=== PATIENT | male | born 1960 | race Caucasian/White ===

== ENCOUNTER 2023-03-28 20:08 | Inpatient (IN) | payer SELFPAY ==
[2023-03-28 22:04] LABS: #Monocytes 0.8 thou/uL (0.11-0.59); #Neutrophils 11.1 thou/uL (1.40-6.50); %Basophils 0.2 % (0.0-1.0); %Lymphocytes 6.5 % (21.0-51.0); %Monocytes 6.4 % (0.0-10.0); %Neutrophils 86.2 % (42.0-75.0); Hemoglobin 10.5 g/dL (14.0-18.0); Mean Corpuscular HGB CONC 32.9 g/dL (32.0-36.0); Mean Corpuscular Hemoglobin 23.7 pg (27.0-31.0); Mean Platelet Volume 10.8 fL (7.4-10.4); Platelet Count 292 10x3/uL (130-400); Red Blood Cell (RBC) Count 4.43 mill/uL (4.70-6.10); White Blood Cell (WBC) Count 12.9 10x3/uL (4.8-10.8)
[2023-03-28 22:15] LABS: INR-International Normal Ratio 1.2; PTT 27.1 sec (22.9-36.1); Prothrombin Time 15.3 sec (12.0-14.7)
[2023-03-28 22:28] LABS: ALT (SGPT) 18 U/L (8-55); AST (SGOT) 19 U/L (5-34); Albumin 3.9 g/dL (3.4-4.8); Alkaline Phosphatase 77 U/L (40-110); Anion Gap 14 mmol/L (10-20); BUN (Urea Nitrogen) 33 mg/dL (8.4-25.7); Bilirubin, Total 1.2 mg/dL (0.2-1.2); Calc. Creatinine Clearance 0 mL/min (70-130); Calcium 9.7 mg/dL (7.8-10.44); Carbon Dioxide 29 mmol/L (23-31); Chloride 99 mmol/L (98-107); Estimated GFR 55; Globulin 2.9 g/dL (2.4-3.5); Glucose 204 mg/dL (80-115); Potassium 4.6 mmol/L (3.5-5.1); Protein, Total 6.8 g/dL (5.8-8.1); Sodium 137 mmol/L (136-145)
[2023-03-28 22:32] LABS: CellaVision Operator ID LAB.CLH1; Elliptocytes SLIGHT = 2-5 cells HPF (0-1); Hypochromia SLIGHT = 6-15 cells HPF (0-5); Macrocytosis SLIGHT = 6-15 cells HPF (0-5); Platelet Adequacy Comment Platelets Normal; Polychromasia SLIGHT = 2-3 cells HPF (0-2); Target Cells SLIGHT = 2-5 cells HPF (0-1)
[2023-03-28] MEDS ORDERED: Morphine 2 MG/ML VIAL SLOW IVP PRN (22:54)
[2023-03-28] MEDS ORDERED: Ipratropium/Albuterol 3 ML NEB NEB PRN (22:54)
[2023-03-28] MEDS ORDERED: Ondansetron PF 4 MG/2 ML Vial IVP PRN (22:54)
[2023-03-28] MEDS ORDERED: Acetaminophen/Codeine 30-300mg Tablet PO PRN (22:57)
[2023-03-28 23:00] VITALS: BMI 21.4
[2023-03-28] MEDS ORDERED: Sodium Chloride 0.9% 1,000 ML IV SCH (23:00)
[2023-03-28 23:30] LABS: CKMB 1.9 ng/mL (0-6.6)
[2023-03-29] MEDS: Sodium Chloride 0.9% 1,000 ML IV SCH ×2 (00:01→08:04)
[2023-03-29] MEDS: Acetaminophen 325 MG TAB PO SCH ×4 (06:04→18:41)
[2023-03-29 06:09] LABS: #Monocytes 1.2 thou/uL (0.11-0.59); #Neutrophils 10.7 thou/uL (1.40-6.50); %Basophils 0.2 % (0.0-1.0); %Eosinophils 0.1 % (0.0-10.0); %Lymphocytes 11.4 % (21.0-51.0); %Monocytes 8.7 % (0.0-10.0); %Neutrophils 78.9 % (42.0-75.0); Hemoglobin 9.3 g/dL (14.0-18.0); Mean Corpuscular HGB CONC 32.6 g/dL (32.0-36.0); Mean Platelet Volume 11.1 fL (7.4-10.4); Platelet Count 263 10x3/uL (130-400); RBC Distribution Width 16.4 % (11.5-14.5); Red Blood Cell (RBC) Count 3.87 mill/uL (4.70-6.10); White Blood Cell (WBC) Count 13.6 10x3/uL (4.8-10.8)
[2023-03-29 06:11] LABS: Mean Corpuscular Volume 73.6 fl (78.0-98.0)
[2023-03-29 06:26] LABS: INR-International Normal Ratio 1.2; Prothrombin Time 15.9 sec (12.0-14.7)
[2023-03-29 06:31] LABS: Anion Gap 13 mmol/L (10-20); BUN (Urea Nitrogen) 35 mg/dL (8.4-25.7); Calc. Creatinine Clearance 52 mL/min (70-130); Calcium 8.7 mg/dL (7.8-10.44); Carbon Dioxide 25 mmol/L (23-31); Chloride 104 mmol/L (98-107); Estimated GFR 59; Glucose 142 mg/dL (80-115); Potassium 4.1 mmol/L (3.5-5.1); Sodium 138 mmol/L (136-145)
[2023-03-29 06:35] LABS: Troponin I 0.058 ng/mL (< 0.028)
[2023-03-29] MEDS: Famotidine/PF 20 mg/2ml Vial SLOW IVP SCH ×2 (08:04→21:41)
[2023-03-29] MEDS ORDERED: Lactated Ringer's 1,000 ML IV SCH (09:00)
[2023-03-29] MEDS ORDERED: CEFAZOLIN 2 GM VIAL ONE (09:29)
[2023-03-29] MEDS ORDERED: Sodium Chloride 0.9% 100 ML ONE (09:29)
[2023-03-29] MEDS ORDERED: Fentanyl 250 MCG/5 ML VIAL ONE (10:40)
[2023-03-29] MEDS ORDERED: Communication Order-Pharmacy FS SCH (10:45)
[2023-03-29] MEDS ORDERED: Rocuronium Bromide 10 MG/ML (10ML VIAL) ONE (10:50)
[2023-03-29] MEDS ORDERED: Ondansetron PF 4 MG/2 ML Vial ONE (10:50)
[2023-03-29] MEDS ORDERED: Dexamethasone 20 MG/5 ML VIAL ONE (10:50)
[2023-03-29] MEDS ORDERED: Lidocaine 1% PF 5 ML VIAL ONE (10:50)
[2023-03-29] MEDS ORDERED: PROPOFOL 200 MG/20 ML VIAL ONE (10:50)
[2023-03-29] MEDS ORDERED: SUGAMMADEX SODIUM 200 MG/2 ML VIAL ONE (12:03)
[2023-03-29] MEDS ORDERED: traMADol HCl 50 MG TAB PO PRN (15:58)
[2023-03-29 17:39] LABS: Troponin I 0.036 ng/mL (< 0.028)
[2023-03-29 17:50] LABS: Bacteria/HPF None Seen HPF (None Seen); Bilirubin Negative (Negative); Blood, Urine Negative (Negative); CAUTI Indications for Culture Alt mental st,lethar; Clarity Clear (Clear); Glucose, Urine (Dipstick) 70 mg/dL (Negative); Ketone, Urine Negative (Negative); Leukocyte Negative Leu/uL (Negative); Nitrite Negative (Negative); Protein, Urine (Dipstick) 10 mg/dL (Neg-Trace); RBC/HPF 0-3 HPF (0-3); Specific Gravity, Urine 1.021 (1.002-1.036); Squamous Epithelial None Seen HPF (0-3); Urine Culture Reflex No No; Urobilinogen Normal mg/dL (Less than 2); WBC/HPF 0-3 HPF (0-3); pH, Urine 5.5 (5.0-9.0)
[2023-03-29] MEDS: CEFAZOLIN 2 GM in Sodium Chloride 0.9% 100 ML IVPB SCH (18:42)
[2023-03-29] MEDS: Aspirin 81 mg Enteric Coated Tablet PO SCH (21:41)
[2023-03-30] MEDS: Acetaminophen 325 MG TAB PO SCH ×5 (00:04→23:41)
[2023-03-30] MEDS: CEFAZOLIN 2 GM in Sodium Chloride 0.9% 100 ML IVPB SCH (02:26)
[2023-03-30 07:17] LABS: #Monocytes 1.2 thou/uL (0.11-0.59); #Neutrophils 10.8 thou/uL (1.40-6.50); %Basophils 0.2 % (0.0-1.0); %Lymphocytes 8.4 % (21.0-51.0); %Neutrophils 81.7 % (42.0-75.0); Hemoglobin 8.6 g/dL (14.0-18.0); Mean Corpuscular HGB CONC 32.6 g/dL (32.0-36.0); Mean Corpuscular Hemoglobin 23.4 pg (27.0-31.0); Mean Corpuscular Volume 71.7 fl (78.0-98.0); Mean Platelet Volume 11.4 fL (7.4-10.4); Platelet Count 254 10x3/uL (130-400); RBC Distribution Width 16.4 % (11.5-14.5); Red Blood Cell (RBC) Count 3.68 mill/uL (4.70-6.10); White Blood Cell (WBC) Count 13.3 10x3/uL (4.8-10.8)
[2023-03-30 07:37] LABS: Anion Gap 11 mmol/L (10-20); BUN (Urea Nitrogen) 27 mg/dL (8.4-25.7); Calc. Creatinine Clearance 71 mL/min (70-130); Calcium 8.7 mg/dL (7.8-10.44); Carbon Dioxide 25 mmol/L (23-31); Chloride 107 mmol/L (98-107); Estimated GFR 86; Glucose 149 mg/dL (80-115); Magnesium 2.1 mg/dL (1.6-2.6); Phosphorus 3.5 mg/dL (2.3-4.7); Potassium 4.7 mmol/L (3.5-5.1); Sodium 138 mmol/L (136-145)
[2023-03-30 08:23] LABS: Anisocytosis SLIGHT = 6-15 cells HPF (0-5); CellaVision Operator ID LAB.NR; Hypochromia SLIGHT = 6-15 cells HPF (0-5); Platelet Adequacy Comment Platelets Normal
[2023-03-30] MEDS: Aspirin 81 mg Enteric Coated Tablet PO SCH ×2 (09:41→20:06)
[2023-03-30] MEDS: Famotidine/PF 20 mg/2ml Vial SLOW IVP SCH ×2 (09:41→20:06)
[2023-03-30] MEDS: Senokot S 8.6-50 MG TAB PO SCH (20:06)
[2023-03-31] MEDS: Acetaminophen 325 MG TAB PO SCH ×3 (05:01→18:55)
[2023-03-31] MEDS: Aspirin 81 mg Enteric Coated Tablet PO SCH ×2 (09:09→20:49)
[2023-03-31] MEDS: Senokot S 8.6-50 MG TAB PO SCH ×2 (09:10→20:49)
[2023-03-31] MEDS ORDERED: Amlodipine 5 MG TAB PO SCH (14:15)
[2023-03-31] MEDS ORDERED: Lisinopril 10 MG TAB PO SCH (14:15)
[2023-03-31] MEDS ORDERED: hydrALAZINE 20 MG/ML VIAL SLOW IVP PRN (16:35)
[2023-03-31] MEDS: Amlodipine 5 MG TAB PO SCH (20:48)
[2023-04-01] MEDS: Acetaminophen 325 MG TAB PO SCH ×4 (00:26→17:52)
[2023-04-01] MEDS: Aspirin 81 mg Enteric Coated Tablet PO SCH ×2 (09:42→20:10)
[2023-04-01] MEDS: Amlodipine 5 MG TAB PO SCH ×2 (09:42→20:10)
[2023-04-01] MEDS: Lisinopril 10 MG TAB PO SCH (09:43)
[2023-04-01] MEDS: Senokot S 8.6-50 MG TAB PO SCH ×2 (09:50→20:11)
[2023-04-02] MEDS: Acetaminophen 325 MG TAB PO SCH ×5 (00:06→23:20)
[2023-04-02 06:10] LABS: #Basophils 0.1 thou/uL (0.0-0.2); #Eosinphils 0.3 thou/uL (0.0-0.7); #Monocytes 0.9 thou/uL (0.11-0.59); #Neutrophils 7.9 thou/uL (1.40-6.50); %Basophils 0.4 % (0.0-1.0); %Eosinophils 2.2 % (0.0-10.0); %Lymphocytes 20.8 % (21.0-51.0); %Neutrophils 68.2 % (42.0-75.0); Hemoglobin 8.2 g/dL (14.0-18.0); Mean Corpuscular HGB CONC 32.3 g/dL (32.0-36.0); Mean Corpuscular Hemoglobin 23.7 pg (27.0-31.0); Mean Platelet Volume 10.2 fL (7.4-10.4); Platelet Count 348 10x3/uL (130-400); RBC Distribution Width 17.2 % (11.5-14.5); Red Blood Cell (RBC) Count 3.46 mill/uL (4.70-6.10); White Blood Cell (WBC) Count 11.6 10x3/uL (4.8-10.8)
[2023-04-02 06:11] LABS: Mean Corpuscular Volume 73.4 fl (78.0-98.0)
[2023-04-02] MEDS: Senokot S 8.6-50 MG TAB PO SCH ×2 (08:08→20:09)
[2023-04-02] MEDS: Aspirin 81 mg Enteric Coated Tablet PO SCH ×2 (08:08→20:09)
[2023-04-02] MEDS: Amlodipine 5 MG TAB PO SCH ×2 (08:08→20:09)
[2023-04-02] MEDS: Lisinopril 10 MG TAB PO SCH (08:09)
[2023-04-03] MEDS: Acetaminophen 325 MG TAB PO SCH ×4 (06:57→23:11)
[2023-04-03] MEDS: Aspirin 81 mg Enteric Coated Tablet PO SCH ×2 (10:16→21:10)
[2023-04-03] MEDS: Lisinopril 10 MG TAB PO SCH (10:17)
[2023-04-03] MEDS: Ascorbic Acid 500 mg Chewable Tablet PO SCH (10:17)
[2023-04-03] MEDS: Ferrous Sulfate 325 MG TAB PO SCH (10:17)
[2023-04-03] MEDS: Senokot S 8.6-50 MG TAB PO SCH ×2 (10:17→21:10)
[2023-04-03] MEDS: Amlodipine 5 MG TAB PO SCH ×2 (10:17→21:10)
[2023-04-04] MEDS: Acetaminophen 325 MG TAB PO SCH ×2 (05:15→12:03)
[2023-04-04] MEDS: Ferrous Sulfate 325 MG TAB PO SCH (08:49)
[2023-04-04] MEDS: Aspirin 81 mg Enteric Coated Tablet PO SCH (08:49)
[2023-04-04] MEDS: Senokot S 8.6-50 MG TAB PO SCH (08:49)
[2023-04-04] MEDS: Amlodipine 5 MG TAB PO SCH (08:49)
[2023-04-04] MEDS: Ascorbic Acid 500 mg Chewable Tablet PO SCH (08:49)
[2023-04-04] MEDS ORDERED: Lisinopril 20 MG TAB PO SCH (09:00)
[2023-04-04 12:37] VITALS: BP 155/76; TEMP 98
== END 2023-04-04 12:30 | disposition home or self-care (01) | DRG 481 ==
LOC: ERS 20:08 → SURG B 21:53
PROVIDERS: ADMIT Surgery; ATTEND Surgery
PROC: 0QS604Z Reposition Right Upper Femur with Internal Fixation Device, Open Approach (ICD-10-PCS; principal; 2023-03-29)
DX: S72.141A Displaced intertrochanteric fracture of right femur, initial encounter for closed fracture (principal); N17.9 Acute kidney failure, unspecified; I12.9 Hypertensive chronic kidney disease with stage 1 through stage 4 chronic kidney disease, or unspecified chronic kidney disease; N18.9 Chronic kidney disease, unspecified; R41.3 Other amnesia; G30.9 Alzheimer's disease, unspecified; F02.80 Dementia in other diseases classified elsewhere, unspecified severity, without behavioral disturbance, psychotic disturbance, mood disturbance, and anxiety; I65.22 Occlusion and stenosis of left carotid artery; W18.30XA Fall on same level, unspecified, initial encounter; Z86.73 Personal history of transient ischemic attack (TIA), and cerebral infarction without residual deficits; Y92.009 Unspecified place in unspecified non-institutional (private) residence as the place of occurrence of the external cause
CPT/HCPCS: 36415; 36416; 70450; 71045; 72125; 80048; 80053; 81001; 82553; 83735; 84100; 84484; 85025; 85610; 85730; 86850; 86900; 86901; 93005; 93010; 93306; 93880; C1713; G0390; J0360; J1100; J2405; J2704; J3010; J3490; J7050; J7120; S0028

== ENCOUNTER 2023-06-27 23:42 | Inpatient (IN) | payer OTHER, SELFPAY ==
[2023-06-28] MEDS ORDERED: Cefepime 2 GM VIAL ONE (00:29)
[2023-06-28 00:46] LABS: Bacteria/HPF None Seen HPF (None Seen); Bilirubin Negative (Negative); Blood, Urine Negative (Negative); CAUTI Indications for Culture Alt mental st,lethar; Clarity Clear (Clear); Glucose, Urine (Dipstick) 70 mg/dL (Negative); Ketone, Urine Negative (Negative); Leukocyte Negative Leu/uL (Negative); Nitrite Negative (Negative); Protein, Urine (Dipstick) Negative (Neg-Trace); RBC/HPF 0-3 HPF (0-3); Specific Gravity, Urine 1.015 (1.002-1.036); Squamous Epithelial 0-3 HPF (0-3); Urobilinogen Normal mg/dL (Less than 2); WBC/HPF 0-3 HPF (0-3); pH, Urine 6.5 (5.0-9.0)
[2023-06-28 00:50] LABS: #Basophils 0.1 thou/uL (0.0-0.2); #Monocytes 1.1 thou/uL (0.11-0.59); #Neutrophils 16.8 thou/uL (1.40-6.50); %Basophils 0.3 % (0.0-1.0); %Lymphocytes 4.3 % (21.0-51.0); %Neutrophils 88.8 % (42.0-75.0); Hemoglobin 9.3 g/dL (14.0-18.0); Mean Corpuscular HGB CONC 32.1 g/dL (32.0-36.0); Mean Corpuscular Volume 71.6 fl (78.0-98.0); Mean Platelet Volume 9.9 fL (7.4-10.4); Platelet Count 361 10x3/uL (130-400); RBC Distribution Width 16.3 % (11.5-14.5); Red Blood Cell (RBC) Count 4.05 mill/uL (4.70-6.10); White Blood Cell (WBC) Count 18.9 10x3/uL (4.8-10.8)
[2023-06-28 00:53] LABS: Urine Culture Reflex No No
[2023-06-28] MEDS ORDERED: Vancomycin 1.5 GRAM/300 ML BAG 1.5 GM in Premix Bag 1 BAG IVPB SCH (01:00)
[2023-06-28 01:12] LABS: ALT (SGPT) 9 U/L (8-55); AST (SGOT) 20 U/L (5-34); Alkaline Phosphatase 135 U/L (40-110); Anion Gap 10 mmol/L (10-20); BUN (Urea Nitrogen) 16 mg/dL (8.4-25.7); Bilirubin, Total 0.8 mg/dL (0.2-1.2); Calc. Creatinine Clearance 0 mL/min (70-130); Carbon Dioxide 24 mmol/L (23-31); Chloride 106 mmol/L (98-107); Estimated GFR 102; Globulin 3.1 g/dL (2.4-3.5); Glucose 199 mg/dL (80-115); Potassium 3.7 mmol/L (3.5-5.1); Protein, Total 6.1 g/dL (5.8-8.1); Sodium 136 mmol/L (136-145)
[2023-06-28 01:17] LABS: Troponin I 0.059 ng/mL (< 0.028)
[2023-06-28 01:50] LABS: Anisocytosis SLIGHT = 6-15 cells HPF (0-5); Burr Cells SLIGHT = 2-5 cells HPF (0-1); CellaVision Operator ID LAB.JMM; Elliptocytes SLIGHT = 2-5 cells HPF (0-1); Platelet Adequacy Comment Platelets Normal; Polychromasia SLIGHT = 2-3 cells HPF (0-2)
[2023-06-28 04:14] LABS: Troponin I 0.073 ng/mL (< 0.028)
[2023-06-28 04:28] LABS: SARS-CoV-2 NAA Rapid Test Not Detected (NotDetected)
[2023-06-28 04:51] VITALS: BMI 22.2
[2023-06-28 06:43] LABS: Troponin I 0.096 ng/mL (< 0.028)
[2023-06-28] MEDS ORDERED: Docusate 100 MG CAP PO PRN (08:31)
[2023-06-28] MEDS ORDERED: Acetaminophen 650 MG Suppository PR PRN (08:32)
[2023-06-28] MEDS ORDERED: Acetaminophen 325 MG TAB PO PRN (08:32)
[2023-06-28] MEDS ORDERED: Ondansetron PF 4 MG/2 ML Vial IVP PRN (08:32)
[2023-06-28] MEDS ORDERED: Ondansetron ODT 4 MG TAB PO PRN (08:32)
[2023-06-28] MEDS ORDERED: Senokot S 8.6-50 MG TAB PO PRN (08:32)
[2023-06-28] MEDS ORDERED: Lactated Ringer's 1,000 ML IV SCH (08:45)
[2023-06-28] MEDS ORDERED: Electrolyte Replacement Protocol 1 EACH FS SCH (08:45)
[2023-06-28 09:36] LABS: Troponin I 0.073 ng/mL (< 0.028)
[2023-06-28] MEDS: Famotidine 20 MG TAB PO SCH ×2 (10:27→21:05)
[2023-06-28] MEDS: Ferrous Sulfate 325 MG TAB PO SCH (10:27)
[2023-06-28] MEDS: Amlodipine 5 MG TAB PO SCH ×2 (10:27→21:06)
[2023-06-28] MEDS ORDERED: Cefepime 1 GM in Sodium Chloride 0.9% 100 ML IVPB SCH (12:00)
[2023-06-28] MEDS: Cefepime 2 GM in Sodium Chloride 0.9% 100 ML IVPB SCH (12:26)
[2023-06-28 12:36] LABS: Troponin I 0.083 ng/mL (< 0.028)
[2023-06-28] MEDS: Vancomycin 1 GM in Premix Bag 1 BAG IVPB SCH (13:52)
[2023-06-29] MEDS: Vancomycin 1 GM in Premix Bag 1 BAG IVPB SCH (01:47)
[2023-06-29 06:41] LABS: #Basophils 0.1 thou/uL (0.0-0.2); #Eosinphils 0.1 thou/uL (0.0-0.7); #Monocytes 0.7 thou/uL (0.11-0.59); #Neutrophils 7.4 thou/uL (1.40-6.50); %Basophils 0.7 % (0.0-1.0); %Eosinophils 1.4 % (0.0-10.0); %Lymphocytes 18.8 % (21.0-51.0); %Monocytes 6.9 % (0.0-10.0); %Neutrophils 71.8 % (42.0-75.0); Hematocrit 29.8 % (42.0-52.0); Hemoglobin 9.5 g/dL (14.0-18.0); Mean Corpuscular HGB CONC 31.9 g/dL (32.0-36.0); Mean Corpuscular Hemoglobin 23.1 pg (27.0-31.0); Mean Platelet Volume 9.7 fL (7.4-10.4); Platelet Count 406 10x3/uL (130-400); RBC Distribution Width 16.6 % (11.5-14.5); Red Blood Cell (RBC) Count 4.11 mill/uL (4.70-6.10); White Blood Cell (WBC) Count 10.4 10x3/uL (4.8-10.8)
[2023-06-29 07:00] LABS: Mean Corpuscular Volume 72.5 fl (78.0-98.0)
[2023-06-29 07:41] LABS: Anisocytosis MODERATE=16-30 cells HPF (0-5); Burr Cells MODERATE= 6-15 cells HPF (0-1); CellaVision Operator ID LAB.CMB; Large Platelets 3.8 % (0-5); Microcytosis MODERATE=15-30 cells HPF (0-5); Ovalocytes MODERATE= 6-15 cells HPF (0-1); Platelet Adequacy Comment Platelets Increased; Poikilocytosis MODERATE=16-30 cells HPF (0-5); Polychromasia SLIGHT = 2-3 cells HPF (0-2); RBC Morphology 2
[2023-06-29 07:54] LABS: ALT (SGPT) 17 U/L (8-55); AST (SGOT) 41 U/L (5-34); Alkaline Phosphatase 126 U/L (40-110); Anion Gap 10 mmol/L (10-20); BUN (Urea Nitrogen) 7 mg/dL (8.4-25.7); Bilirubin, Total 0.7 mg/dL (0.2-1.2); Calc. Creatinine Clearance 99 mL/min (70-130); Calcium 8.7 mg/dL (7.8-10.44); Carbon Dioxide 26 mmol/L (23-31); Chloride 106 mmol/L (98-107); Estimated GFR 103; Globulin 3.6 g/dL (2.4-3.5); Glucose 95 mg/dL (80-115); Protein, Total 6.6 g/dL (5.8-8.1); Sodium 138 mmol/L (136-145)
[2023-06-29] MEDS: Famotidine 20 MG TAB PO SCH ×2 (08:22→19:54)
[2023-06-29] MEDS: Ferrous Sulfate 325 MG TAB PO SCH (08:22)
[2023-06-29] MEDS: Amlodipine 5 MG TAB PO SCH ×2 (08:22→19:54)
[2023-06-29] MEDS ORDERED: Lisinopril 20 MG TAB PO SCH (09:00)
[2023-06-29] MEDS: Cefepime 2 GM in Sodium Chloride 0.9% 100 ML IVPB SCH ×2 (12:02)
[2023-06-29 12:06] LABS: Vancomycin, Trough 12.7 ug/mL
[2023-06-29] MEDS ORDERED: VANCOMYCIN 1.25 GM/250 ML BAG 1.25 GM in Premix Bag 1 BAG IVPB SCH (13:00)
[2023-06-29] MEDS: Lactated Ringer's 1,000 ML IV SCH (16:22)
[2023-06-29] MEDS: Lisinopril 20 MG TAB PO SCH (19:54)
[2023-06-30] MEDS: Cefepime 2 GM in Sodium Chloride 0.9% 100 ML IVPB SCH (00:24)
[2023-06-30] MEDS: Lactated Ringer's 1,000 ML IV SCH (05:15)
[2023-06-30 06:01] LABS: #Basophils 0.1 thou/uL (0.0-0.2); #Eosinphils 0.2 thou/uL (0.0-0.7); #Monocytes 0.6 thou/uL (0.11-0.59); #Neutrophils 5.6 thou/uL (1.40-6.50); %Eosinophils 1.7 % (0.0-10.0); %Lymphocytes 29.9 % (21.0-51.0); %Monocytes 6.7 % (0.0-10.0); %Neutrophils 60.4 % (42.0-75.0); Hematocrit 36.7 % (42.0-52.0); Hemoglobin 11.4 g/dL (14.0-18.0); Mean Corpuscular HGB CONC 31.1 g/dL (32.0-36.0); Mean Corpuscular Hemoglobin 22.8 pg (27.0-31.0); Mean Corpuscular Volume 73.3 fl (78.0-98.0); Mean Platelet Volume 11.1 fL (7.4-10.4); Platelet Count 369 10x3/uL (130-400); RBC Distribution Width 16.8 % (11.5-14.5); Red Blood Cell (RBC) Count 5.01 mill/uL (4.70-6.10); White Blood Cell (WBC) Count 9.4 10x3/uL (4.8-10.8)
[2023-06-30 06:24] LABS: ALT (SGPT) 18 U/L (8-55); AST (SGOT) 29 U/L (5-34); Albumin 3.2 g/dL (3.4-4.8); Alkaline Phosphatase 133 U/L (40-110); Anion Gap 14 mmol/L (10-20); BUN (Urea Nitrogen) 7 mg/dL (8.4-25.7); Bilirubin, Total 0.5 mg/dL (0.2-1.2); Calc. Creatinine Clearance 105 mL/min (70-130); Calcium 8.9 mg/dL (7.8-10.44); Carbon Dioxide 26 mmol/L (23-31); Chloride 104 mmol/L (98-107); Estimated GFR 105; Globulin 3.6 g/dL (2.4-3.5); Glucose 86 mg/dL (80-115); Magnesium 1.8 mg/dL (1.6-2.6); Potassium 3.7 mmol/L (3.5-5.1); Protein, Total 6.8 g/dL (5.8-8.1); Sodium 140 mmol/L (136-145)
[2023-06-30] MEDS ORDERED: Magnesium 2 GM/50 ML(in water) 2 GM in Premix Bag 1 BAG IVPB SCH (08:00)
[2023-06-30] MEDS: Ferrous Sulfate 325 MG TAB PO SCH (08:37)
[2023-06-30] MEDS: cefTRIAXone\\ROCEPHIN 1 GM in Sodium Chloride 0.9% 100 ML IVPB SCH (08:37)
[2023-06-30] MEDS: Famotidine 20 MG TAB PO SCH ×2 (08:37→21:20)
[2023-06-30] MEDS: Lisinopril 20 MG TAB PO SCH ×2 (08:37→21:19)
[2023-06-30] MEDS: Amlodipine 5 MG TAB PO SCH ×2 (08:37→21:20)
[2023-06-30] MEDS ORDERED: hydrALAZINE 25 MG TAB PO PRN (09:06)
[2023-06-30] MEDS: Cyanocobalamin (Vitamin B-12) 1,000 MCG TAB PO SCH (21:19)
[2023-06-30] MEDS: Multivit, Therapeutic 1 TAB PO SCH (21:19)
[2023-06-30] MEDS: Thiamine 100 MG TAB PO SCH (21:20)
[2023-06-30] MEDS: Senokot S 8.6-50 MG TAB PO SCH (21:20)
[2023-06-30] MEDS: Folic Acid 1 MG TAB PO SCH (21:20)
[2023-07-01 06:25] LABS: #Basophils 0.1 thou/uL (0.0-0.2); #Eosinphils 0.1 thou/uL (0.0-0.7); #Monocytes 0.6 thou/uL (0.11-0.59); #Neutrophils 3.6 thou/uL (1.40-6.50); %Basophils 0.8 % (0.0-1.0); %Eosinophils 1.7 % (0.0-10.0); %Neutrophils 48.1 % (42.0-75.0); Hematocrit 32.8 % (42.0-52.0); Hemoglobin 10.3 g/dL (14.0-18.0); Mean Corpuscular HGB CONC 31.4 g/dL (32.0-36.0); Mean Corpuscular Hemoglobin 22.8 pg (27.0-31.0); Mean Corpuscular Volume 72.6 fl (78.0-98.0); Mean Platelet Volume 10.8 fL (7.4-10.4); Platelet Count 490 10x3/uL (130-400); RBC Distribution Width 16.4 % (11.5-14.5); Red Blood Cell (RBC) Count 4.52 mill/uL (4.70-6.10); White Blood Cell (WBC) Count 7.5 10x3/uL (4.8-10.8)
[2023-07-01 06:35] LABS: ALT (SGPT) 15 U/L (8-55); AST (SGOT) 18 U/L (5-34); Albumin 3.1 g/dL (3.4-4.8); Alkaline Phosphatase 124 U/L (40-110); Anion Gap 8 mmol/L (10-20); BUN (Urea Nitrogen) 10 mg/dL (8.4-25.7); Bilirubin, Total 0.5 mg/dL (0.2-1.2); Calc. Creatinine Clearance 102 mL/min (70-130); Calcium 8.6 mg/dL (7.8-10.44); Carbon Dioxide 31 mmol/L (23-31); Chloride 102 mmol/L (98-107); Estimated GFR 104; Globulin 3.2 g/dL (2.4-3.5); Glucose 79 mg/dL (80-115); Potassium 3.3 mmol/L (3.5-5.1); Protein, Total 6.3 g/dL (5.8-8.1); Sodium 138 mmol/L (136-145)
[2023-07-01] MEDS ORDERED: Potassium Chloride 20 MEQ TAB PO SCH (08:00)
[2023-07-01] MEDS: Famotidine 20 MG TAB PO SCH ×2 (08:16→21:41)
[2023-07-01] MEDS: Amlodipine 5 MG TAB PO SCH ×2 (08:16→21:40)
[2023-07-01] MEDS: cefTRIAXone\\ROCEPHIN 1 GM in Sodium Chloride 0.9% 100 ML IVPB SCH (08:17)
[2023-07-01] MEDS: Lisinopril 20 MG TAB PO SCH ×2 (08:18→21:41)
[2023-07-01] MEDS: Senokot S 8.6-50 MG TAB PO SCH ×2 (08:18→21:40)
[2023-07-01 08:24] LABS: Burr Cells SLIGHT = 2-5 cells HPF (0-1); CellaVision Operator ID LAB.GE; Ovalocytes SLIGHT = 2-5 cells HPF (0-1); Platelet Adequacy Comment Platelets Increased; Polychromasia SLIGHT = 2-3 cells HPF (0-2)
[2023-07-01 09:37] LABS: Phosphorus 3.4 mg/dL (2.3-4.7)
[2023-07-01] MEDS: Docusate 100 MG CAP PO SCH ×2 (12:36→21:40)
[2023-07-01] MEDS: Multivit, Therapeutic 1 TAB PO SCH (21:40)
[2023-07-01] MEDS: Thiamine 100 MG TAB PO SCH (21:40)
[2023-07-01] MEDS: Cyanocobalamin (Vitamin B-12) 1,000 MCG TAB PO SCH (21:41)
[2023-07-01] MEDS: Folic Acid 1 MG TAB PO SCH (21:41)
[2023-07-02 06:58] LABS: #Basophils 0.1 thou/uL (0.0-0.2); #Eosinphils 0.1 thou/uL (0.0-0.7); #Monocytes 0.7 thou/uL (0.11-0.59); #Neutrophils 4.6 thou/uL (1.40-6.50); %Basophils 0.9 % (0.0-1.0); %Eosinophils 1.6 % (0.0-10.0); %Lymphocytes 27.9 % (21.0-51.0); %Monocytes 9.1 % (0.0-10.0); %Neutrophils 59.9 % (42.0-75.0); Hematocrit 32.3 % (42.0-52.0); Mean Corpuscular Hemoglobin 22.6 pg (27.0-31.0); Mean Corpuscular Volume 73.1 fl (78.0-98.0); Mean Platelet Volume 9.9 fL (7.4-10.4); Platelet Count 479 10x3/uL (130-400); RBC Distribution Width 16.4 % (11.5-14.5); Red Blood Cell (RBC) Count 4.42 mill/uL (4.70-6.10); White Blood Cell (WBC) Count 7.7 10x3/uL (4.8-10.8)
[2023-07-02 07:29] LABS: Anion Gap 11 mmol/L (10-20); BUN (Urea Nitrogen) 16 mg/dL (8.4-25.7); Calc. Creatinine Clearance 93 mL/min (70-130); Calcium 8.7 mg/dL (7.8-10.44); Carbon Dioxide 28 mmol/L (23-31); Chloride 103 mmol/L (98-107); Estimated GFR 102; Glucose 88 mg/dL (80-115); Potassium 3.9 mmol/L (3.5-5.1); Sodium 138 mmol/L (136-145)
[2023-07-02 08:22] LABS: CellaVision Operator ID LAB.GE; Elliptocytes SLIGHT = 2-5 cells HPF (0-1); Hypochromia SLIGHT = 6-15 cells HPF (0-5); Microcytosis SLIGHT = 6-15 cells HPF (0-5); Ovalocytes SLIGHT = 2-5 cells HPF (0-1); Platelet Adequacy Comment Platelets Increased; Polychromasia SLIGHT = 2-3 cells HPF (0-2)
[2023-07-02] MEDS: Senokot S 8.6-50 MG TAB PO SCH ×2 (08:40→22:03)
[2023-07-02] MEDS: Famotidine 20 MG TAB PO SCH ×2 (08:40→22:02)
[2023-07-02] MEDS: Docusate 100 MG CAP PO SCH ×2 (08:40→22:02)
[2023-07-02] MEDS: Amlodipine 5 MG TAB PO SCH ×2 (08:40→22:02)
[2023-07-02] MEDS: Lisinopril 20 MG TAB PO SCH ×2 (08:40→22:02)
[2023-07-02] MEDS: cefTRIAXone\\ROCEPHIN 1 GM in Sodium Chloride 0.9% 100 ML IVPB SCH (08:41)
[2023-07-02] MEDS ORDERED: Sodium Chloride 0.9% 1,000 ML IV SCH (10:30)
[2023-07-02] MEDS: Cyanocobalamin (Vitamin B-12) 1,000 MCG TAB PO SCH (22:02)
[2023-07-02] MEDS: Folic Acid 1 MG TAB PO SCH (22:02)
[2023-07-02] MEDS: Multivit, Therapeutic 1 TAB PO SCH (22:02)
[2023-07-02] MEDS: Thiamine 100 MG TAB PO SCH (22:03)
[2023-07-03] MEDS: cefTRIAXone\\ROCEPHIN 1 GM in Sodium Chloride 0.9% 100 ML IVPB SCH (09:23)
[2023-07-03] MEDS: Docusate 100 MG CAP PO SCH (09:24)
[2023-07-03] MEDS: Famotidine 20 MG TAB PO SCH (09:24)
[2023-07-03] MEDS: Amlodipine 5 MG TAB PO SCH (09:24)
[2023-07-03] MEDS: Senokot S 8.6-50 MG TAB PO SCH (09:24)
[2023-07-03] MEDS: Lisinopril 20 MG TAB PO SCH (09:24)
[2023-07-03 11:51] VITALS: TEMP 98.3
[2023-07-03 12:13] VITALS: BP 168/76
== END 2023-07-03 12:32 | disposition home or self-care (01) | DRG 871 ==
LOC: ERS 23:42 → T4-A 06-28 03:31
PROVIDERS: ADMIT Internal Medicine; ATTEND Internal Medicine
DX: A41.9 Sepsis, unspecified organism (principal); G93.41 Metabolic encephalopathy; I21.A1 Myocardial infarction type 2; E44.0 Moderate protein-calorie malnutrition; I10 Essential (primary) hypertension; D64.9 Anemia, unspecified; G30.9 Alzheimer's disease, unspecified; F02.80 Dementia in other diseases classified elsewhere, unspecified severity, without behavioral disturbance, psychotic disturbance, mood disturbance, and anxiety; E87.6 Hypokalemia; D75.839 Thrombocytosis, unspecified; Z86.73 Personal history of transient ischemic attack (TIA), and cerebral infarction without residual deficits; Z98.890 Other specified postprocedural states; Z20.822 Contact with and (suspected) exposure to COVID-19; Z79.899 Other long term (current) drug therapy; Z68.22 Body mass index [BMI] 22.0-22.9, adult; K80.20 Calculus of gallbladder without cholecystitis without obstruction
CPT/HCPCS: 36415; 51701; 70450; 71045; 71275; 76705; 80048; 80053; 80202; 81001; 83605; 83690; 83735; 84100; 84484; 85025; 85379; 86140; 87040; 93005; 93010; 96365; 96366; 96367; 97139; J0692; J0696; J1650; J3370; J3370-JW; J3475; J3490; J7050; J7120

== ENCOUNTER 2023-09-23 18:13 | Inpatient (IN) | payer MEDICARE, SELFPAY ==
[2023-09-23 19:03] LABS: #Monocytes 0.9 thou/uL (0.11-0.59); #Neutrophils 13.7 thou/uL (1.40-6.50); %Basophils 0.2 % (0.0-1.0); %Eosinophils 0.1 % (0.0-10.0); %Lymphocytes 10.2 % (21.0-51.0); %Monocytes 5.3 % (0.0-10.0); %Neutrophils 83.5 % (42.0-75.0); Mean Corpuscular HGB CONC 32.1 g/dL (32.0-36.0); Mean Corpuscular Volume 68.3 fl (78.0-98.0); Mean Platelet Volume 10.1 fL (7.4-10.4); Platelet Count 673 10x3/uL (130-400); RBC Distribution Width 17.1 % (11.5-14.5); White Blood Cell (WBC) Count 16.4 10x3/uL (4.8-10.8)
[2023-09-23] MEDS ORDERED: Acetaminophen 650 MG Suppository ONE (19:10)
[2023-09-23] MEDS ORDERED: Vancomycin 1 GM/200 ML (FROZEN) BAG ONE (19:10)
[2023-09-23] MEDS ORDERED: Cefepime 2 GM VIAL ONE (19:10)
[2023-09-23] MEDS ORDERED: Sodium Chloride 0.9% 100 ML ONE (19:11)
[2023-09-23 19:18] LABS: Bacteria/HPF None Seen HPF (None Seen); Bilirubin Negative (Negative); Blood, Urine Negative (Negative); CAUTI Indications for Culture Fever or rigors; Clarity Clear (Clear); Glucose, Urine (Dipstick) Normal (Negative); Ketone, Urine Negative (Negative); Leukocyte Negative Leu/uL (Negative); Nitrite Negative (Negative); Protein, Urine (Dipstick) 10 mg/dL (Neg-Trace); RBC/HPF 0-3 HPF (0-3); Specific Gravity, Urine 1.019 (1.002-1.036); Squamous Epithelial 0-3 HPF (0-3); Urobilinogen Normal mg/dL (Less than 2)
[2023-09-23 19:22] LABS: Urine Culture Reflex No No
[2023-09-23 19:26] LABS: INR-International Normal Ratio 1.2; Prothrombin Time 16.2 sec (12.0-14.7)
[2023-09-23 19:27] LABS: PTT 31.9 sec (22.9-36.1)
[2023-09-23 19:29] LABS: ALT (SGPT) 36 U/L (8-55); AST (SGOT) 44 U/L (5-34); Albumin 2.6 g/dL (3.4-4.8); Alkaline Phosphatase 114 U/L (40-110); Anion Gap 13 mmol/L (10-20); BUN (Urea Nitrogen) 12 mg/dL (8.4-25.7); Bilirubin, Total 1.2 mg/dL (0.2-1.2); Calc. Creatinine Clearance 0 mL/min (70-130); Carbon Dioxide 21 mmol/L (23-31); Chloride 102 mmol/L (98-107); Estimated GFR 107; Glucose 97 mg/dL (80-115); Potassium 4.1 mmol/L (3.5-5.1); Protein, Total 6.6 g/dL (5.8-8.1); Sodium 132 mmol/L (136-145)
[2023-09-23 19:42] LABS: Anisocytosis SLIGHT = 6-15 cells HPF (0-5); Burr Cells SLIGHT = 2-5 cells HPF (0-1); CellaVision Operator ID LAB.KB; Hypochromia SLIGHT = 6-15 cells HPF (0-5); Microcytosis SLIGHT = 6-15 cells HPF (0-5); Ovalocytes SLIGHT = 2-5 cells HPF (0-1); Platelet Adequacy Comment Platelets Increased; Polychromasia SLIGHT = 2-3 cells HPF (0-2); Target Cells SLIGHT = 2-5 cells HPF (0-1)
[2023-09-23 20:08] LABS: SARS-CoV-2 NAA Rapid Test Not Detected (NotDetected)
[2023-09-23] MEDS ORDERED: Ondansetron PF 4 MG/2 ML Vial IVP PRN (20:15)
[2023-09-23] MEDS ORDERED: Sodium Chloride 0.9% 1,000 ML IV SCH (20:15)
[2023-09-23] MEDS ORDERED: Ondansetron ODT 4 MG TAB SL PRN (20:15)
[2023-09-23] MEDS ORDERED: Acetaminophen 325 MG TAB PO PRN ×2 (20:15→20:55)
[2023-09-23] MEDS ORDERED: Ketorolac Tromethamine 30 MG/ML VIAL ONE (20:30)
[2023-09-23] MEDS ORDERED: Metoclopramide HCl 10 MG/2 ML VIAL IVP PRN (20:55)
[2023-09-23] MEDS: Amlodipine 5 MG TAB PO SCH (21:00)
[2023-09-23] MEDS ORDERED: Electrolyte Replacement Protocol 1 EACH FS PRN (21:00)
[2023-09-23] MEDS: Thiamine 100 MG TAB PO SCH (21:00)
[2023-09-23] MEDS: Cyanocobalamin (Vitamin B-12) 1,000 MCG TAB PO SCH ×2 (21:00→23:51)
[2023-09-23] MEDS: Folic Acid 1 MG TAB PO SCH (23:51)
[2023-09-23] MEDS: Multivit, Therapeutic 1 TAB PO SCH (23:51)
[2023-09-24] MEDS: Vancomycin HCl 750 MG in Sodium Chloride 0.9% 250 ML 250 ML IVPB SCH ×3 (04:25→19:57)
[2023-09-24 06:15] LABS: #Monocytes 0.7 thou/uL (0.11-0.59); #Neutrophils 11.5 thou/uL (1.40-6.50); %Basophils 0.3 % (0.0-1.0); %Eosinophils 0.1 % (0.0-10.0); %Lymphocytes 11.7 % (21.0-51.0); %Monocytes 5.1 % (0.0-10.0); %Neutrophils 82.1 % (42.0-75.0); Hematocrit 24.7 % (42.0-52.0); Hemoglobin 7.9 g/dL (14.0-18.0); Mean Corpuscular Hemoglobin 22.1 pg (27.0-31.0); Mean Corpuscular Volume 69.2 fl (78.0-98.0); Mean Platelet Volume 9.8 fL (7.4-10.4); Platelet Count 585 10x3/uL (130-400); RBC Distribution Width 17.2 % (11.5-14.5); Red Blood Cell (RBC) Count 3.57 mill/uL (4.70-6.10)
[2023-09-24 06:42] LABS: ALT (SGPT) 29 U/L (8-55); AST (SGOT) 32 U/L (5-34); Albumin 2.3 g/dL (3.4-4.8); Alkaline Phosphatase 97 U/L (40-110); Anion Gap 13 mmol/L (10-20); BUN (Urea Nitrogen) 13 mg/dL (8.4-25.7); Bilirubin, Total 1.1 mg/dL (0.2-1.2); Calc. Creatinine Clearance 89 mL/min (70-130); Calcium 7.6 mg/dL (7.8-10.44); Carbon Dioxide 23 mmol/L (23-31); Chloride 105 mmol/L (98-107); Estimated GFR 107; Globulin 3.5 g/dL (2.4-3.5); Glucose 84 mg/dL (80-115); Potassium 3.6 mmol/L (3.5-5.1); Protein, Total 5.8 g/dL (5.8-8.1); Sodium 137 mmol/L (136-145)
[2023-09-24] MEDS ORDERED: Vancomycin 1 GM in Premix 1 BAG IVPB SCH (09:00)
[2023-09-24] MEDS: Cefepime 2 GM in Sodium Chloride 0.9% 100 ML IVPB SCH ×2 (10:13→21:45)
[2023-09-24] MEDS: Amlodipine 5 MG TAB PO SCH ×3 (10:14→19:57)
[2023-09-24] MEDS: Lisinopril 20 MG TAB PO SCH ×2 (10:15→11:21)
[2023-09-24] MEDS ORDERED: Iopamidol-370 76% 500 ML MDV (1 ML CHARGE) ONE (10:16)
[2023-09-24 16:59] VITALS: BMI 16.5
[2023-09-24] MEDS: Dextrose 5% in Water 1,000 ML IV SCH (17:36)
[2023-09-24] MEDS: Multivit, Therapeutic 1 TAB PO SCH (19:58)
[2023-09-24] MEDS: Thiamine 100 MG TAB PO SCH (19:58)
[2023-09-24] MEDS: Folic Acid 1 MG TAB PO SCH (19:58)
[2023-09-24] MEDS: Cyanocobalamin (Vitamin B-12) 1,000 MCG TAB PO SCH (19:58)
[2023-09-25 00:55] LABS: Campy jejuni + coli by PCR Negative (Negative); STEC Shiga Toxin 1+2 Negative (Negative); Salmonella spp. by PCR Negative (Negative); Shigella spp + EIEC by PCR Negative (Negative)
[2023-09-25] MEDS: Vancomycin HCl 750 MG in Sodium Chloride 0.9% 250 ML 250 ML IVPB SCH ×3 (03:29→21:32)
[2023-09-25 05:59] LABS: #Basophils 0.1 thou/uL (0.0-0.2); #Monocytes 0.8 thou/uL (0.11-0.59); %Basophils 0.5 % (0.0-1.0); %Eosinophils 0.3 % (0.0-10.0); %Lymphocytes 16.5 % (21.0-51.0); %Monocytes 7.3 % (0.0-10.0); %Neutrophils 74.1 % (42.0-75.0); Hematocrit 25.7 % (42.0-52.0); Hemoglobin 8.2 g/dL (14.0-18.0); Mean Corpuscular HGB CONC 31.9 g/dL (32.0-36.0); Mean Corpuscular Hemoglobin 22.4 pg (27.0-31.0); Mean Corpuscular Volume 70.2 fl (78.0-98.0); Mean Platelet Volume 10.1 fL (7.4-10.4); Platelet Count 604 10x3/uL (130-400); RBC Distribution Width 17.1 % (11.5-14.5); Red Blood Cell (RBC) Count 3.66 mill/uL (4.70-6.10); White Blood Cell (WBC) Count 10.8 10x3/uL (4.8-10.8)
[2023-09-25 07:00] LABS: Anisocytosis SLIGHT = 6-15 cells HPF (0-5); CellaVision Operator ID lab.abc; Hypochromia SLIGHT = 6-15 cells HPF (0-5); Large Platelets 8.1 % (0-5); Microcytosis SLIGHT = 6-15 cells HPF (0-5); Platelet Adequacy Comment Platelets Increased; Polychromasia SLIGHT = 2-3 cells HPF (0-2); Smudge Cells 20.2 %
[2023-09-25 07:10] LABS: ALT (SGPT) 28 U/L (8-55); AST (SGOT) 27 U/L (5-34); Albumin 2.3 g/dL (3.4-4.8); Alkaline Phosphatase 102 U/L (40-110); Anion Gap 11 mmol/L (10-20); BUN (Urea Nitrogen) 16 mg/dL (8.4-25.7); Bilirubin, Total 0.9 mg/dL (0.2-1.2); Calc. Creatinine Clearance 79 mL/min (70-130); Calcium 7.9 mg/dL (7.8-10.44); Carbon Dioxide 23 mmol/L (23-31); Chloride 105 mmol/L (98-107); Estimated GFR 103; Globulin 3.8 g/dL (2.4-3.5); Glucose 105 mg/dL (80-115); Potassium 3.5 mmol/L (3.5-5.1); Protein, Total 6.1 g/dL (5.8-8.1); Sodium 135 mmol/L (136-145)
[2023-09-25] MEDS ORDERED: Potassium Chloride 20 MEQ TAB PO SCH (09:00)
[2023-09-25] MEDS: Cefepime 2 GM in Sodium Chloride 0.9% 100 ML IVPB SCH ×2 (09:40→20:14)
[2023-09-25] MEDS ORDERED: Ondansetron HCl/PF 4 MG/2 ML Vial IVP PRN ×2 (11:21→12:54)
[2023-09-25] MEDS: Amlodipine 5 MG TAB PO SCH (11:39)
[2023-09-25] MEDS: Lisinopril 20 MG TAB PO SCH (11:40)
[2023-09-25] MEDS ORDERED: Dexamethasone 20 MG/5 ML VIAL ONE (11:46)
[2023-09-25] MEDS ORDERED: PROPOFOL 200 MG/20 ML VIAL ONE (11:46)
[2023-09-25] MEDS ORDERED: Ondansetron PF 4 MG/2 ML Vial ONE (11:46)
[2023-09-25] MEDS ORDERED: hydrALAZINE 20 MG/ML VIAL SLOW IVP PRN (11:46)
[2023-09-25] MEDS ORDERED: Lidocaine 1% PF 5 ML VIAL ONE (11:46)
[2023-09-25] MEDS ORDERED: Rocuronium Bromide 10 MG/ML (10ML VIAL) ONE (11:46)
[2023-09-25] MEDS ORDERED: PHENYLEPHRINE-NS 100 MCG/ML 10 ML SYRINGE ONE (11:46)
[2023-09-25] MEDS ORDERED: fentaNYL PF 100 MCG/2 ML SYRINGE ONE (11:52)
[2023-09-25 19:25] LABS: Vancomycin, Trough 20.1 ug/mL
[2023-09-25] MEDS: Dextrose 5% in Water 1,000 ML IV SCH (19:36)
[2023-09-25] MEDS: Folic Acid 1 MG TAB PO SCH (20:32)
[2023-09-25] MEDS: Multivit, Therapeutic 1 TAB PO SCH (20:32)
[2023-09-25] MEDS: Thiamine 100 MG TAB PO SCH (20:32)
[2023-09-25] MEDS: Cyanocobalamin (Vitamin B-12) 1,000 MCG TAB PO SCH (20:33)
[2023-09-26] MEDS: Vancomycin HCl 750 MG in Sodium Chloride 0.9% 250 ML 250 ML IVPB SCH ×3 (04:01→21:13)
[2023-09-26 05:56] LABS: #Monocytes 0.5 thou/uL (0.11-0.59); #Neutrophils 6.9 thou/uL (1.40-6.50); %Basophils 0.1 % (0.0-1.0); %Lymphocytes 14.4 % (21.0-51.0); %Monocytes 6.1 % (0.0-10.0); %Neutrophils 78.3 % (42.0-75.0); Hematocrit 25.5 % (42.0-52.0); Hemoglobin 8.1 g/dL (14.0-18.0); Mean Corpuscular HGB CONC 31.8 g/dL (32.0-36.0); Mean Corpuscular Hemoglobin 21.8 pg (27.0-31.0); Mean Corpuscular Volume 68.5 fl (78.0-98.0); Mean Platelet Volume 9.8 fL (7.4-10.4); Platelet Count 719 10x3/uL (130-400); RBC Distribution Width 17.6 % (11.5-14.5); Red Blood Cell (RBC) Count 3.72 mill/uL (4.70-6.10); White Blood Cell (WBC) Count 8.8 10x3/uL (4.8-10.8)
[2023-09-26 06:29] LABS: ALT (SGPT) 25 U/L (8-55); AST (SGOT) 25 U/L (5-34); Albumin 2.1 g/dL (3.4-4.8); Alkaline Phosphatase 86 U/L (40-110); Anion Gap 11 mmol/L (10-20); BUN (Urea Nitrogen) 16 mg/dL (8.4-25.7); Bilirubin, Total 0.5 mg/dL (0.2-1.2); Calc. Creatinine Clearance 92 mL/min (70-130); Calcium 7.9 mg/dL (7.8-10.44); Carbon Dioxide 22 mmol/L (23-31); Chloride 105 mmol/L (98-107); Estimated GFR 108; Globulin 3.6 g/dL (2.4-3.5); Glucose 126 mg/dL (80-115); Potassium 4.2 mmol/L (3.5-5.1); Protein, Total 5.7 g/dL (5.8-8.1); Sodium 134 mmol/L (136-145)
[2023-09-26] MEDS: Cefepime 2 GM in Sodium Chloride 0.9% 100 ML IVPB SCH ×2 (08:43→20:41)
[2023-09-26] MEDS: Lisinopril 20 MG TAB PO SCH (08:44)
[2023-09-26] MEDS: Dextrose 5% in Water 1,000 ML IV SCH (16:50)
[2023-09-26] MEDS: Multivit, Therapeutic 1 TAB PO SCH (20:41)
[2023-09-26] MEDS: Cyanocobalamin (Vitamin B-12) 1,000 MCG TAB PO SCH (20:41)
[2023-09-26] MEDS: Thiamine 100 MG TAB PO SCH (20:41)
[2023-09-26] MEDS: Folic Acid 1 MG TAB PO SCH (20:41)
[2023-09-26] MEDS ORDERED: Vancomycin HCl 750 MG in Sodium Chloride 0.9% 250 ML 250 ML IVPB SCH (23:59)
[2023-09-27 07:27] LABS: #Monocytes 0.7 thou/uL (0.11-0.59); #Neutrophils 6.8 thou/uL (1.40-6.50); %Basophils 0.1 % (0.0-1.0); %Eosinophils 0.4 % (0.0-10.0); %Lymphocytes 16.4 % (21.0-51.0); %Monocytes 7.3 % (0.0-10.0); %Neutrophils 74.9 % (42.0-75.0); Hematocrit 23.3 % (42.0-52.0); Hemoglobin 7.5 g/dL (14.0-18.0); Mean Corpuscular HGB CONC 32.2 g/dL (32.0-36.0); Mean Corpuscular Hemoglobin 22.3 pg (27.0-31.0); Mean Corpuscular Volume 69.3 fl (78.0-98.0); Mean Platelet Volume 10.1 fL (7.4-10.4); Platelet Count 720 10x3/uL (130-400); RBC Distribution Width 17.5 % (11.5-14.5); Red Blood Cell (RBC) Count 3.36 mill/uL (4.70-6.10); White Blood Cell (WBC) Count 9.1 10x3/uL (4.8-10.8)
[2023-09-27 07:50] LABS: Anion Gap 9 mmol/L (10-20); BUN (Urea Nitrogen) 12 mg/dL (8.4-25.7); Calc. Creatinine Clearance 99 mL/min (70-130); Calcium 7.8 mg/dL (7.8-10.44); Carbon Dioxide 23 mmol/L (23-31); Chloride 105 mmol/L (98-107); Estimated GFR 110; Glucose 74 mg/dL (80-115); Potassium 3.4 mmol/L (3.5-5.1); Sodium 134 mmol/L (136-145)
[2023-09-27] MEDS ORDERED: Potassium Chloride 20 MEQ TAB PO SCH (08:00)
[2023-09-27] MEDS: Cefepime 2 GM in Sodium Chloride 0.9% 100 ML IVPB SCH (08:02)
[2023-09-27] MEDS: Lisinopril 20 MG TAB PO SCH (08:03)
[2023-09-27 08:20] LABS: Anisocytosis MODERATE=16-30 cells HPF (0-5); Burr Cells SLIGHT = 2-5 cells HPF (0-1); CellaVision Operator ID LAB.NR; Elliptocytes SLIGHT = 2-5 cells HPF (0-1); Hypochromia MODERATE=16-30 cells HPF (0-5); Macrocytosis SLIGHT = 6-15 cells HPF (0-5); Platelet Adequacy Comment Platelets Increased; Polychromasia SLIGHT = 2-3 cells HPF (0-2); Schistocytes SLIGHT = 2-5 cells HPF (0-1); Target Cells MODERATE= 6-15 cells HPF (0-1)
[2023-09-27 10:37] VITALS: BP 163/76; TEMP 97.8
== END 2023-09-27 11:00 | disposition hospice, home (50) | DRG 853 ==
LOC: ERS 18:13 → T4-B 19:59 → OBSVTOIN 09-24 10:29
PROVIDERS: ADMIT Student in an Organized Health Care Education/Training Program; ATTEND Internal Medicine Critical Care Medicine
PROC: 3E03329 Introduction of Other Anti-infective into Peripheral Vein, Percutaneous Approach (ICD-10-PCS; 2023-09-24)
PROC: 0QB10ZZ Excision of Sacrum, Open Approach (ICD-10-PCS; principal; 2023-09-25)
PROC: 0JB90ZZ Excision of Buttock Subcutaneous Tissue and Fascia, Open Approach (ICD-10-PCS; 2023-09-25)
PROC: 3E033XZ Introduction of Vasopressor into Peripheral Vein, Percutaneous Approach (ICD-10-PCS; 2023-09-25)
DX: A41.59 Other Gram-negative sepsis (principal); E43 Unspecified severe protein-calorie malnutrition; L89.154 Pressure ulcer of sacral region, stage 4; E87.1 Hypo-osmolality and hyponatremia; I96 Gangrene, not elsewhere classified; Z66 Do not resuscitate; Z51.5 Encounter for palliative care; L02.31 Cutaneous abscess of buttock; M86.8X8 Other osteomyelitis, other site; Z68.1 Body mass index [BMI] 19.9 or less, adult; I10 Essential (primary) hypertension; Z11.52 Encounter for screening for COVID-19; Z79.899 Other long term (current) drug therapy; Z98.890 Other specified postprocedural states; D63.1 Anemia in chronic kidney disease; G30.9 Alzheimer's disease, unspecified; R62.51 Failure to thrive (child); Z74.01 Bed confinement status; F02.C0 Dementia in other diseases classified elsewhere, severe, without behavioral disturbance, psychotic disturbance, mood disturbance, and anxiety
CPT/HCPCS: 36415; 71045; 72170; 72193; 74018; 74230; 80048; 80053; 80202; 81001; 83605; 85025; 85610; 85730; 87040; 87077; 87086; 87149; 87186; 87324; 87449; 87493; 87505; 93005; 96372; 96376; 97139; G0378; J0692; J1100; J1650; J1885; J2405; J2704; J3370; J3370-JW; J3490; J7050; J7070; Q9967